=== PATIENT | male | born 1945 | race Caucasian/White ===

== ENCOUNTER → 2016-05-13 | Outpatient (REF) ==
[~2016-05-13] MED LIST: ASPIR-LOW81 MG PO; AVANDIA8 MG PO; B-12 TIME1000 MCG PO; EXCEDRIN MIGRAI1 TAB PO; FLEXERIL10 MG PO; FORTAMET500 MG PO; LEVEMIR100 U/ML SQ; MAGNESIUM200 MG PO; PRAVACHOL 40MG40 MG PO; TESTOSTERON200 MG/ML IM; TYLENOL 500MG500 MG PO; VASOTEC5 MG PO; VERELAN240 MG PO; VOLTAREN-XR100 MG PO
[2016-05-13 19:24] LABS: PSA-TOTAL 0.87 ng/mL (0-4)
[2016-05-13 19:50] LABS: THYROID STIMULATING HORMONE 0.611 uIU/mL (0.465-4.680)
== END ==
LOC: ZLAB.WCH 18:36
PROVIDERS: Internal Medicine
DX: Z01.89 Encounter for other specified special examinations (principal)
CPT/HCPCS: G0103

== ENCOUNTER → 2016-07-14 | Outpatient (CLI) | payer MEDICARE, BC | LOC: SUN.DIA 13:15 | DX: E10.21 Type 1 diabetes mellitus with diabetic nephropathy (principal); E10.65 Type 1 diabetes mellitus with hyperglycemia; Z79.4 Long term (current) use of insulin; Z71.3 Dietary counseling and surveillance; E78.5 Hyperlipidemia, unspecified; I10 Essential (primary) hypertension ==

== ENCOUNTER → 2016-10-16 | Outpatient (REF) | LOC: ZLAB.WCH 10:48 | DX: Z01.89 Encounter for other specified special examinations (principal) ==

== ENCOUNTER 2016-10-19 15:51 | Outpatient (RCR) | payer MEDICARE, BC | END 2016-10-20 09:02 | disposition home or self-care (01) | LOC: MKS.ESL.PT 15:51 | DX: Z01.818 Encounter for other preprocedural examination (principal); M75.102 Unspecified rotator cuff tear or rupture of left shoulder, not specified as traumatic | CPT/HCPCS: G8978-GP; G8979-GP ==

== ENCOUNTER → 2017-01-12 | Outpatient (CLI) | payer MEDICARE, BC | LOC: SUN.DIA 11:27 | DX: E10.21 Type 1 diabetes mellitus with diabetic nephropathy (principal); Z79.4 Long term (current) use of insulin; E78.5 Hyperlipidemia, unspecified; I10 Essential (primary) hypertension; Z68.27 Body mass index [BMI] 27.0-27.9, adult; Z71.3 Dietary counseling and surveillance ==

== ENCOUNTER 2017-01-28 13:45 | Outpatient (RCR) | payer MEDICARE, BC | END 2017-01-31 | disposition still patient (30) | LOC: MKS.ESL.PT | DX: S43.432D Superior glenoid labrum lesion of left shoulder, subsequent encounter (principal); M25.60 Stiffness of unspecified joint, not elsewhere classified; Z98.890 Other specified postprocedural states | CPT/HCPCS: G0283-GP; G8978-GP; G8979-GP ==

== ENCOUNTER 2017-02-24 10:45 | Outpatient (RCR) | payer MEDICARE, BC | END 2017-05-02 | disposition home or self-care (01) | LOC: MKS.ESL.PT | DX: Z47.89 Encounter for other orthopedic aftercare (principal); M75.22 Bicipital tendinitis, left shoulder; Z98.890 Other specified postprocedural states ==

== ENCOUNTER → 2017-04-02 | Outpatient (REF) | LOC: ZLAB.WCH 18:50 | DX: Z01.89 Encounter for other specified special examinations (principal) ==

== ENCOUNTER → 2017-06-21 | Outpatient (REF) | LOC: ZLAB.WCH 16:08 | DX: Z01.89 Encounter for other specified special examinations (principal) | CPT/HCPCS: G0103 ==

== ENCOUNTER → 2017-06-22 | Outpatient (REF) | LOC: ZLAB.WCH 08:46 | DX: Z01.89 Encounter for other specified special examinations (principal) ==

== ENCOUNTER → 2017-07-12 | Outpatient (CLI) | payer MEDICARE, BC | LOC: SUN.DIA 10:46 | DX: E10.21 Type 1 diabetes mellitus with diabetic nephropathy (principal); Z79.4 Long term (current) use of insulin; E78.5 Hyperlipidemia, unspecified; I10 Essential (primary) hypertension; Z68.27 Body mass index [BMI] 27.0-27.9, adult; Z71.3 Dietary counseling and surveillance | CPT/HCPCS: G0108 ==

== ENCOUNTER → 2017-09-28 | Outpatient (REF) | LOC: ZLAB.WCH 16:01 | DX: Z01.89 Encounter for other specified special examinations (principal) ==

== ENCOUNTER → 2017-09-29 | Outpatient (REF) | LOC: ZLAB.WCH 18:26 | DX: Z01.89 Encounter for other specified special examinations (principal) ==

== ENCOUNTER 2017-11-18 14:00 | Outpatient (RCR) | payer MEDICARE, BC | END 2017-11-19 11:45 | disposition home or self-care (01) | LOC: MKS.ESL.PT 14:00 | DX: Z47.89 Encounter for other orthopedic aftercare (principal); Z96.651 Presence of right artificial knee joint | CPT/HCPCS: G8978-GP; G8979-GP; G8980-GP ==

== ENCOUNTER → 2018-01-11 | Outpatient (CLI) | payer MEDICARE, BC | LOC: SUN.DIA 10:41 | DX: E10.9 Type 1 diabetes mellitus without complications (principal); E78.5 Hyperlipidemia, unspecified; I10 Essential (primary) hypertension; Z79.4 Long term (current) use of insulin | CPT/HCPCS: G0108 ==

== ENCOUNTER → 2018-02-10 | Outpatient (REF) | LOC: ZLAB.WCH 17:57 | DX: Z01.89 Encounter for other specified special examinations (principal) ==

== ENCOUNTER → 2018-04-13 | Outpatient (CLI) | payer MEDICARE, BC | LOC: COL.VAS 07:47 | DX: M79.89 Other specified soft tissue disorders (principal); Z98.890 Other specified postprocedural states ==

== ENCOUNTER → 2018-07-12 | Outpatient (CLI) | payer MEDICARE, BC | LOC: SUN.DIA | DX: E10.9 Type 1 diabetes mellitus without complications (principal); Z79.4 Long term (current) use of insulin; E78.5 Hyperlipidemia, unspecified; I10 Essential (primary) hypertension | CPT/HCPCS: G0108 ==

== ENCOUNTER → 2018-08-16 | Outpatient (CLI) | payer MEDICARE, BC | LOC: SUN.DIA 11:52 | DX: E11.9 Type 2 diabetes mellitus without complications (principal); E78.5 Hyperlipidemia, unspecified; I10 Essential (primary) hypertension | CPT/HCPCS: G0108 ==

== ENCOUNTER → 2018-09-06 | Outpatient (CLI) | payer MEDICARE, BC | LOC: SUN.DIA 10:03 | DX: E11.9 Type 2 diabetes mellitus without complications (principal); Z79.4 Long term (current) use of insulin; E78.5 Hyperlipidemia, unspecified; I10 Essential (primary) hypertension | CPT/HCPCS: G0108 ==

== ENCOUNTER → 2018-09-13 | Outpatient (CLI) | payer MEDICARE, BC | LOC: DIA.ED 07:50 | DX: E11.9 Type 2 diabetes mellitus without complications (principal); E78.5 Hyperlipidemia, unspecified; I10 Essential (primary) hypertension; Z79.4 Long term (current) use of insulin | CPT/HCPCS: G0108 ==

== ENCOUNTER → 2018-11-15 | Outpatient (CLI) | payer MEDICARE, BC | LOC: DIA.ED 10:23 | DX: E11.9 Type 2 diabetes mellitus without complications (principal); E78.5 Hyperlipidemia, unspecified; I10 Essential (primary) hypertension; Z79.4 Long term (current) use of insulin | CPT/HCPCS: G0108 ==

== ENCOUNTER 2020-01-07 02:59 | Emergency (ER) | payer MEDICARE, BC ==
[~2020-01-07] VITALS: Ht 170.2 cm; Wt 77.3 kg
[2020-01-07 03:03] VITALS: TEMP 98.1
[2020-01-07 03:21] LABS: COLLECTION METHOD IN
[2020-01-07] MEDS ORDERED: MACROBID 1100 MG/CAP PO (03:26)
[2020-01-07 03:39] LABS: PH 7 (5-8); SQUAMOUS EPITHELIAL None Seen /hpf; URINE APPEARANCE Hazy; URINE BACTERIA None Seen /hpf; URINE BILIRUBIN Negative (NEGATIVE); URINE BLOOD 3+ (NEGATIVE); URINE COLOR Yellow; URINE GLUCOSE 3+ (NEGATIVE); URINE KETONE Negative (NEGATIVE); URINE LEUKOCYTE ESTERASE Negative (NEGATIVE); URINE NITRATE Negative (NEGATIVE); URINE PROTEIN(semi-quant) 2+ (NEGATIVE); URINE RBC >50 /hpf; URINE UROBILINOGEN Negative (NEGATIVE)
[2020-01-07 04:07] VITALS: BP 132/70; PULSE 76
== END 2020-01-07 04:08 | disposition home or self-care (01) ==
LOC: COL.ER 02:59
PROVIDERS: Emergency Medicine
DX: R33.9 Retention of urine, unspecified (principal); Z90.79 Acquired absence of other genital organ(s); Z88.0 Allergy status to penicillin; Z79.82 Long term (current) use of aspirin; Z79.84 Long term (current) use of oral hypoglycemic drugs

== ENCOUNTER 2021-02-26 12:37 | Outpatient (CLI) | payer MEDICARE, BC ==
[2021-02-26] VITALS (7 sets, daily range): BP systolic 131–141; BP diastolic 68–78; PULSE 72–96; TEMP 99.9
[~2021-02-26 12:37] MED LIST changes: +MACROBID 1100 MG/CAP PO
[2021-02-26] MEDS ORDERED: GLUCOPHAGE1000 MG PO (14:21)
[2021-02-26] MEDS ORDERED: MAGNESIUM500 MG PO (14:22)
[2021-02-26] MEDS ORDERED: TRULICITY1.5 MG/0.5 SQ (14:22)
[2021-02-26] MEDS ORDERED: MOBIC15 MG PO (14:23)
[2021-02-26] MEDS ORDERED: CALAN120 MG PO (14:23)
[2021-02-26] MEDS ORDERED: VASOTEC20 MG PO (14:23)
[2021-02-26] MEDS ORDERED: FLOMAX 0.40.4 MG/CAP PO (14:24)
== END 2021-02-26 14:55 | disposition home or self-care (01) ==
LOC: EUO 12:37
DX: U07.1 COVID-19 (principal); E11.22 Type 2 diabetes mellitus with diabetic chronic kidney disease; N18.9 Chronic kidney disease, unspecified; I51.9 Heart disease, unspecified
CPT/HCPCS: M0245